=== PATIENT | male | born 1965 | race Caucasian/White ===

== ENCOUNTER 2017-08-06 14:19 | Emergency (ER) | payer SELFPAY ==
[2017-08-06 14:23] VITALS: BP 154/85
--- NOTE | 2017-08-06 15:21 | RADIOLOGY REPORT (SQ) ---
EXAM DESCRIPTION: HAND LEFT 3 VIEWS COMPLETED DATE/TIME: 08/06/2017 2:57 pm REASON FOR STUDY: possible metal COMPARISON: None. EXAM PARAMETERS: NUMBER OF VIEWS: Three views. TECHNIQUE: AP, lateral and oblique radiographic images acquired of the left hand. LIMITATIONS: None. FINDINGS: MINERALIZATION: Normal. BONES: No acute fracture or dislocation. No worrisome bone lesions. JOINTS: No effusions. SOFT TISSUES: No soft tissue swelling. A tiny linear radiopaque foreign body is identified in the so ft tissues at the level of the PIP joint anteriorly. OTHER: No other significant finding. IMPRESSION: No evidence for acute fracture or dislocation. Tiny linear radiopaque foreign body in t he soft tissues at the level of the 2nd digit anteriorly as noted above TECHNICAL DOCUMENTATION: JOB ID: [id number] [employer]- All Rights Reserved Reading location - IP/workstation name: [email or web address]
[2017-08-06] MEDS ORDERED: SULFAMETHOXAZOLE/TRIMETHOPRIM 800-160 MG TABLET PO ONE (15:47)
--- NOTE | 2017-08-06 16:04 | ER Document Report ---
ED General - General Chief Complaint: Hand Pain Stated Complaint: POSSIBLE ABSCESS Time Seen by Provider: 08/06/17 15:26 TRAVEL OUTSIDE OF THE [place] IN LAST 30 DAYS: No - HPI Patient complains to provider of: Left hand infection Notes: Patient states her last few days have a small area on his left hand noted to come to ahead possible pimple that he did try to drain states he did have a small amount of pus come out however now has enlarged and has an ulceration in the middle patient states no relief with Neosporin if he came to the ER for further evaluation. Patient denies fevers chills nausea vomiting diarrhea. Patient unclear if he has been bitten by any insects other than trying to open the wound up himself patient denies any trauma to hand. - Related Data Allergies/Adverse Reactions: hydrocodone bitartrate [From Vicodin] Allergy (Verified 08/06/17 14:20) Past Medical History - Social History Smoking Status: Never Smoker Chew tobacco use (# tins/day): Yes Frequency of alcohol use: Occasional Drug Abuse: None Family History: CAD, DM, Hyperlipidemia, Hypertension Patient has suicidal ideation: No Patient has homicidal ideation: No Renal/ Medical History: Denies: Hx Peritoneal Dialysis Past Surgical History: Reports: Hx Appendectomy, Hx Orthopedic Surgery - Jaw and femur - Immunizations Hx Diphtheria, Pertussis, Tetanus Vaccination: Yes - unknown last tetnus Review of Systems - Review of Systems Constitutional: No symptoms reported EENT: No symptoms reported Cardiovascular: No symptoms reported Respiratory: No symptoms reported Gastrointestinal: No symptoms reported Genitourinary: No symptoms reported Male Genitourinary: No symptoms reported Musculoskeletal: No symptoms reported Skin: Other - Possible abscess Hematologic/Lymphatic: No symptoms reported Neurological/Psychological: No symptoms reported -: Yes All other systems reviewed and negative Physical Exam - Vital signs Vitals: Temp Pulse Resp BP Pulse Ox 98.4 F 92 20 154/85 H 98 08/06/17 14:22 08/06/17 14:22 08/06/17 14:22 08/06/17 14:22 08/06/17 14:22 Interpretation: Normal - General General appearance: Appears well, Alert - HEENT Head: Normocephalic, Atraumatic Eyes: Normal Pupils: PERRL - Respiratory Respiratory status: No respiratory distress Chest status: Nontender Breath sounds: Normal Chest palpation: Normal - Cardiovascular Rhythm: Regular Heart sounds: Normal auscultation Murmur: No - Abdominal Inspection: Normal Distension: No distension Bowel sounds: Normal Tenderness: Nontender Organomegaly: No organomegaly - Back Back: Normal, Nontender - Extremities General upper extremity: Nontender, Normal color, Normal ROM, Normal temperature. No: Normal inspection - On the dorsum of the left hand between the index and middle phalanx there is an area of erythema raised with a central area of ulceration he probably approximately 1 1 x 1 cm is not fluctuant but is very tender to palpation. Bedside ultrasound does not reveal actually any centralized fluid collection but does reveal grainy tissue within the raised lump. There is some necrotic tissue in the middle of the ulceration unable to express anything out of the raised area of erythema General lower extremity: Normal inspection, Nontender, Normal color, Normal ROM , Normal temperature, Normal weight bearing. No: Nathan's sign - Neurological Neuro grossly intact: Yes Cognition: Normal Orientation: AAOx4 Manpreet Coma Scale Eye Opening: Spontaneous Manpreet Coma Scale Verbal: Oriented Manpreet Coma Scale Motor: Obeys Commands Edwards Coma Scale Total: 15 Speech: Normal Motor strength normal: LUE, RUE, LLE, RLE Sensory: Normal - Psychological Associated symptoms: Normal affect, Normal mood - Skin Skin Temperature: Warm Skin Moisture: Dry Skin Color: Normal Course - Re-evaluation Re-evalutation: 08/06/17 21:07 X-ray of the hand does reveal a small metal fragment and one of the fingers however this is unrelated to the patient's main issue. Best option does not show a abscess to I&D. The area is erythematous painful warm to touch possibly infected patient has been intubating the area possibly causing infection of the ulceration necrotic tissue possibility of also insect bite with possible vitamin that has become infected. Will start patient on Bactrim for the next few days. There is no concern patient may have a underlying skin cancer did recommend the patient if the antibiotics is not improved his symptoms to follow- up for medical clearance more likely will need a biopsy of the area. Skin cancers lower on the differential is that this is about the last 5 days. - Vital Signs Vital signs: Temp Pulse Resp BP Pulse Ox 98.4 F 92 20 154/85 H 98 08/06/17 14:22 08/06/17 14:22 08/06/17 14:22 08/06/17 14:22 08/06/17 14:22 Discharge - Discharge Clinical Impression: Infected hand Condition: Good Disposition: HOME, SELF-CARE Instructions: Swollen Insect Bite or Sting ([facility]) Additional Instructions: Your examination today does not show underlying abscess formation of swelling on your left hand. The presentation is consistent with some insect bites and concern for possible underlying skin infection therefore we will place you on antibiotic called Bactrim. Please take this as directed. Recommend warm compresses to the area also he can place cold packs to the area to help out with pain control. Tylenol Motrin for pain control to as well. If he finished antibiotics and there is no change in the presentation of the area my next concern would be that there is underlying skin cancer. This will need to be biopsied at this time. I will have our hospice social worker contact you to see if he is scheduled for follow-up appointment with 1 of the clinics for further evaluation of the area of your left hand. Prescriptions: Sulfamethoxazole/Trimethoprim [Bactrim Ds Tablet] 1 each PO BID #20 tablet Forms: Return to Work
== END 2017-08-06 15:57 | disposition home or self-care (01) ==
LOC: ER 14:19
DX: L08.9 Local infection of the skin and subcutaneous tissue, unspecified (principal); M79.642 Pain in left hand
CPT/HCPCS: 99283

== ENCOUNTER 2017-08-16 11:14 | Emergency (ER) | payer SELFPAY ==
[2017-08-16 11:20] VITALS: BP 149/85
[2017-08-16] MEDS ORDERED: OXYCODONE HCL IR 5 MG TABLET PO ONE (11:56)
--- NOTE | 2017-08-16 11:57 | ER Document Report ---
ED Medical Screen (RME) - General Chief Complaint: Abscess Stated Complaint: LEFT HAND PAIN, SWELLING Time Seen by Provider: 08/16/17 11:52 Notes: RAPID MEDICAL EVALUATION DISCLOSURE I have seen this patient as part of a Rapid Medical Evaluation and, if applicable, placed any initially appropriate orders. The patient will be seen and fully evaluated, including a full history and physical exam, by a provider ( in Main ED or Fast Track) when a room becomes available. 51-year-old male here with complaints of continued bump to his left hand. He has had this for quite some time but states that 9 days ago it started to become bigger and more red. He was seen here and was prescribed antibiotics. He reports a bedside ultrasound was performed and he was told there was no fluid. Denies fevers or chills. EXAM 1.5 cm x 1.5 cm fluctuant lesion with erythema TRAVEL OUTSIDE OF THE [place] IN LAST 30 DAYS: No - Related Data Allergies/Adverse Reactions: No Known Allergies Allergy (Unverified 08/16/17 11:16) Past Medical History Renal/ Medical History: Denies: Hx Peritoneal Dialysis Past Surgical History: Reports: Hx Appendectomy, Hx Orthopedic Surgery - Jaw and femur - Immunizations Hx Diphtheria, Pertussis, Tetanus Vaccination: Yes - unknown last tetnus Physical Exam - Vital signs Vitals: Temp Pulse Resp BP Pulse Ox 98.4 F 83 16 149/85 H 97 08/16/17 11:18 08/16/17 11:18 08/16/17 11:18 08/16/17 11:18 08/16/17 11:18 Course - Vital Signs Vital signs: Temp Pulse Resp BP Pulse Ox 98.4 F 83 16 149/85 H 97 08/16/17 11:18 08/16/17 11:18 08/16/17 11:18 08/16/17 11:18 08/16/17 11:18
--- NOTE | 2017-08-16 14:22 | ER Document Report ---
ED Skin Rash/Insect Bite/Abscs - General Chief Complaint: Abscess Stated Complaint: LEFT HAND PAIN, SWELLING Time Seen by Provider: 08/16/17 11:52 Mode of Arrival: Ambulatory Information source: Patient Notes: 51-year-old male presented ED for complaint of bruise to his left posterior hand increasing in size. He states that he noticed a bump about a month ago and was seen in the ED on 08/06/2017 and started on antibiotics. He states he has 3 of the antibiotics left and the gross is getting bigger on his hand. He states he did not fill the tramadol that was written because he has had has increase in pain and he knows it to tramadol will not work. He states when he was seen last time that they did a ultrasound and did not see any fluid in the growth. TRAVEL OUTSIDE OF THE [place] IN LAST 30 DAYS: No - HPI Patient complains to provider of: Other - Gross to the port posterior left hand Onset: Other - Patient states he has only noticed it for months Onset/Duration: Persistent Quality of pain: Sharp Severity: Moderate Pain Level: 4 Skin Character: Other - Close to the posterior hand left Identify cause: No Exacerbated by: Movement Relieved by: Denies Similar symptoms previously: Yes Recently seen / treated by doctor: Yes - Related Data Allergies/Adverse Reactions: No Known Allergies Allergy (Unverified 08/16/17 11:16) Past Medical History - General Information source: Patient - Social History Smoking Status: Never Smoker Cigarette use (# per day): No Chew tobacco use (# tins/day): No Smoking Education Provided: No Frequency of alcohol use: Occasional Drug Abuse: None Lives with: Alone Family History: CAD, DM, Hyperlipidemia, Hypertension Patient has suicidal ideation: No Patient has homicidal ideation: No - Past Medical History Cardiac Medical History: Reports: None Pulmonary Medical History: Reports: None EENT Medical History: Reports: None Neurological Medical History: Reports: None Endocrine Medical History: Reports: None Renal/ Medical History: Reports: None Malignancy Medical History: Reports None GI Medical History: Reports: None Musculoskeltal Medical History: Reports None Skin Medical History: Reports None Psychiatric Medical History: Reports: None Traumatic Medical History: Reports: None Infectious Medical History: Reports: None Past Surgical History: Reports: Hx Appendectomy, Hx Orthopedic Surgery - Jaw and femur - Immunizations Hx Diphtheria, Pertussis, Tetanus Vaccination: Yes - Patient stated 5 years ago Review of Systems - Review of Systems Constitutional: No symptoms reported EENT: No symptoms reported Cardiovascular: No symptoms reported Respiratory: No symptoms reported Gastrointestinal: No symptoms reported Genitourinary: No symptoms reported Male Genitourinary: No symptoms reported Musculoskeletal: No symptoms reported Skin: Other Hematologic/Lymphatic: No symptoms reported Neurological/Psychological: No symptoms reported Physical Exam - Vital signs Vitals: Temp Pulse Resp BP Pulse Ox 98.4 F 83 16 149/85 H 97 08/16/17 11:18 08/16/17 11:18 08/16/17 11:18 08/16/17 11:18 08/16/17 11:18 Interpretation: Normal - General General appearance: Appears well, Alert - HEENT Head: Normocephalic, Atraumatic Eyes: Normal Pupils: PERRL - Respiratory Respiratory status: No respiratory distress Chest status: Nontender Breath sounds: Normal Chest palpation: Normal - Cardiovascular Rhythm: Regular Heart sounds: Normal auscultation Murmur: No - Abdominal Inspection: Normal Distension: No distension Bowel sounds: Normal Tenderness: Nontender Organomegaly: No organomegaly - Back Back: Normal, Nontender - Extremities General upper extremity: Normal inspection, Nontender, Normal color, Normal ROM , Normal temperature General lower extremity: Normal inspection, Nontender, Normal color, Normal ROM , Normal temperature, Normal weight bearing. No: Nathan's sign - Neurological Neuro grossly intact: Yes Cognition: Normal Orientation: AAOx4 Manpreet Coma Scale Eye Opening: Spontaneous Manpreet Coma Scale Verbal: Oriented Manpreet Coma Scale Motor: Obeys Commands Manpreet Coma Scale Total: 15 Speech: Normal Motor strength normal: LUE, RUE, LLE, RLE Sensory: Normal - Psychological Associated symptoms: Normal affect, Normal mood - Skin Skin Temperature: Warm Skin Moisture: Dry Skin Color: Normal Location of irregularity: Other - Circular growth about 1 and 1/2 cm across to posterior left hand with no cellulitis to the hand no inflammation to the hand. Center of the growth was scaly friable material with a surrounding soft irregular red growth. Course - Re-evaluation Re-evalutation: 08/16/17 21:02 Growth was cleaned well with ChloraPrep scraped out and wound culture obtained with an 18-gauge needle. No purulent drainage obtained only blood. Gross was treated with bacitracin and Band-Aid applied with patient promptly removed stating that he did not want that on there. Patient stated he needed some pain medication was written for 14 Windom. He states that the tramadol would not help this area. business representative was in to see the patient and message sent to process planner for the emergency room concerning the need for biopsy of this growth. Patient was discharged home to follow-up with [facility]. - Vital Signs Vital signs: Temp Pulse Resp BP Pulse Ox 98.4 F 83 16 149/85 H 97 08/16/17 11:18 08/16/17 11:18 08/16/17 11:18 08/16/17 11:18 08/16/17 11:18 Discharge - Discharge Clinical Impression: superficial growth to left hand Condition: Stable Disposition: HOME, SELF-CARE Additional Instructions: You returned today for continued pain and growth to the left hand. You states that the area has not gotten any smaller than it was when you were seen 9 days ago. Continue Bactrim until it is completed You state that you did not feel your Ultram prescription because you know that it will not work. I will give you a very short prescription of hydrocodone which is another pain medicine. You need to follow-up with the clinic as you have been instructed by Claire This is probably needs to be surgically removed Oral Narcotic Medication You have been given a prescription for pain control. This medication is a narcotic. It's best taken with food, as nausea can result if taken on an empty stomach. Don't operate machinery or drive within six hours of taking this medication. Do not combine this medicine with alcohol, or with any medication which can cause sedation (such as cold tablets or sleeping pills) unless you get permission from the physician. Narcotics tend to cause constipation. If possible, drink plenty of fluids and eat a diet high in fiber and fruits. FOLLOW-UP CARE: If you have been referred to a physician for follow-up care, call the physician s office for an appointment as you were instructed or within the next two days. If you experience worsening or a significant change in your symptoms, notify the physician immediately or return to the Emergency Department at any time for re-evaluation. Prescriptions: Hydrocodone/Acetaminophen [Windom 5-325 mg Tablet] 1 tab PO Q6HP PRN #14 tablet PRN Reason: Forms: Elevated Blood Pressure, Return to Work Referrals: [facility] [Provider Group] - Follow up as needed [facility] [Provider Group] - Follow up as needed
== END 2017-08-16 14:32 | disposition home or self-care (01) ==
LOC: ER 11:14
DX: R22.32 Localized swelling, mass and lump, left upper limb (principal)
CPT/HCPCS: 99283

== ENCOUNTER 2019-11-20 21:11 | Emergency (ER) | payer SELFPAY ==
[2019-11-20] MEDS ORDERED: NORMAL SALINE 1000 ML 1,000 ML IV ONE ×2 (21:24→23:13)
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
[2019-11-20 21:28] LABS: ABSOLUTE BASOPHILS # (AUTO) 0.1 10^3/uL (0.0-0.2); ABSOLUTE EOSINOPHILS # (AUTO) 0.2 10^3/uL (0.0-0.6); ABSOLUTE LYMPHOCYTES (AUTO) 1.4 10^3/uL (0.5-4.7); ABSOLUTE MONOCYTES (AUTO) 1.5 10^3/uL (0.1-1.4); ABSOLUTE NEUT (AUTO) 11.8 10^3/uL (1.7-8.2); BASOPHILS % (AUTO) 0.4 % (0-2); EOSINOPHILS % (AUTO) 1.3 % (0-6); HEMATOCRIT 38.9 % (37.9-51.0); HEMOGLOBIN 12.9 g/dL (13.5-17.0); LYMPHOCYTES % (AUTO) 9.2 % (13-45); MEAN CORPUSCULAR HEMOGLOBIN 28.9 pg (27.0-33.4); MEAN CORPUSCULAR HGB CONC 33.2 g/dL (32.0-36.0); MEAN CORPUSCULAR VOLUME 87 fl (80-97); MONOCYTES % (AUTO) 9.8 % (3-13); PLATELET COUNT 298 10^3/uL (150-450); RED BLOOD COUNT 4.47 10^6/uL (4.35-5.55); RED CELL DISTRIBUTION WIDTH 12.7 % (11.5-14.0); SEGMENTED NEUTROPHILS % (AUTO) 79.3 % (42-78); TOTAL CELLS COUNTED % (AUTO) 100 %; WHITE BLOOD COUNT 14.9 10^3/uL (4.0-10.5)
[2019-11-20 21:43] LABS: ALBUMIN 3.8 g/dL (3.5-5.0); ALKALINE PHOSPHATASE 66 U/L (38-126); ANION GAP 8 (5-19); ASPARTATE AMINO TRANSFERASE 24 U/L (17-59); BILIRUBIN,TOTAL 0.3 mg/dL (0.2-1.3); BLOOD UREA NITROGEN 18 mg/dL (7-20); CALCIUM 8.7 mg/dL (8.4-10.2); CARBON DIOXIDE 30 mmol/L (22-30); CHLORIDE 103 mmol/L (98-107); CREATINE KINASE 104 U/L (55-170); GLUCOSE 143 mg/dL (75-110); POTASSIUM 4.3 mmol/L (3.6-5.0); TOTAL PROTEIN 6.4 g/dL (6.3-8.2)
[2019-11-20 21:55] LABS: CREATINE KINASE MB 4.15 ng/mL (<4.55); TROPONIN I 0.013 ng/mL
--- NOTE | 2019-11-20 22:03 | RADIOLOGY REPORT (SQ) ---
EXAM DESCRIPTION: XR CHEST 1 VIEW COMPLETED DATE/TME: 11/20/2019 21:23 CLINICAL HISTORY: 54 years, Male, hypoxia, ? aspiration COMPARISON: 01/16/2016 chest NUMBER OF VIEWS: 1 TECHNIQUE: Portable chest LIMITATIONS: None. FINDINGS: Heart size is normal. Mild atheromatous change thoracic aorta. Lungs are clear. No pneumothorax IMPRESSION: No acute cardiopulmonary process copyright 2010 [employer]- All Rights Reserved
[2019-11-20 23:11] LABS: APPEARANCE,URINE CLEAR; BILIRUBIN,URINE NEGATIVE (NEGATIVE); COLOR,URINE STRAW; GLUCOSE, URINE 50 mg/dL (NEGATIVE); KETONES,URINE NEGATIVE (NEGATIVE); LEUKOCYTE ESTERASE,URINE NEGATIVE (NEGATIVE); NITRITE,URINE NEGATIVE (NEGATIVE); PROTEIN,URINE 100 mg/dL (NEGATIVE); URINE SPECIFIC GRAVITY 1.006; UROBILINOGEN,URINE NEGATIVE mg/dL (<2.0)
[2019-11-20 23:38] LABS: URINE BARBITURATES SCREEN NEGATIVE; URINE BENZODIAZEPINES SCREEN NEGATIVE; URINE COCAINE SCREEN NEGATIVE; URINE MARIJUANA (THC) SCREEN NEGATIVE; URINE METHADONE SCREEN NEGATIVE; URINE PHENCYCLIDINE SCREEN NEGATIVE
[2019-11-20] MEDS ORDERED: LORAZEPAM INJ 2 MG/1 ML VIAL IV ONE (23:49)
[2019-11-21 01:32] VITALS: BP 146/86
--- NOTE | 2019-11-21 14:05 | EKG REPORT ---
SEVERITY:- ABNORMAL ECG - SINUS TACHYCARDIA PROBABLE LEFT ATRIAL ABNORMALITY BORDERLINE LEFT AXIS DEVIATION BORDERLINE R WAVE PROGRESSION, ANTERIOR LEADS MINIMAL ST ELEVATION, INFERIOR LEADS : Confirmed by: Jackie Anderson 21-Nov-2019 14:04:42
== END 2019-11-21 01:25 | disposition home or self-care (01) ==
LOC: ER 21:11
DX: T50.901A Poisoning by unspecified drugs, medicaments and biological substances, accidental (unintentional), initial encounter (principal); R09.02 Hypoxemia; E86.0 Dehydration; F17.200 Nicotine dependence, unspecified, uncomplicated; R23.2 Flushing; R00.0 Tachycardia, unspecified
CPT/HCPCS: 93005; 99285; 96361; 96374; 36415; 82553; 80307 ×2; 82550; 85025; 80053; 81001; 84484; 71045; 93010; J2060; J7030 ×2